=== PATIENT | female | born 1950 | race American Indian/Alaskan Native ===

== ENCOUNTER 2017-08-06 08:23 | Outpatient (CLI) | payer MEDICARE ==
--- NOTE | 2017-08-06 10:27 | Mammography Report ---
BILATERAL MAMMOGRAM: FINDINGS: The breast tissue is extremely dense (>75% glandular). This may lower the sensitivity of mammography. No mass, distortion, suspicious calcification, or skin change is seen. No significant change identified when compared to prior exam in July 2015. CAD was utilized. IMPRESSION: Negative mammogram. There is no mammographic evidence of malignancy. RECOMMENDATION: Follow-up per ACS guidelines. BI-RADS CATEGORY: 1 = Negative ACR BI-RADS MAMMOGRAPHIC CODES: 0 = Needs additional imaging evaluation; 1 = Negative; 2 = Benign; 3 = Probably benign; 4 = Suspicious; 5 = Malignant; 6 = Known biopsy-proven malignancy COMMENT: 1. Dense breast tissue, i.e., adenosis, fibrocystic changes, etc., may obscure an underlying neoplasm. 2. Approximately 10% of cancers are not detected with mammography. 3. A negative mammography report should not delay biopsy if a clinically suspicious mass is present. COMMENT: Patient follow-up letters are generated in [facility].
== END 2017-08-06 08:24 | disposition home or self-care (01) ==
LOC: MAMMO 08:23
PROVIDERS: ATTEND Internal Medicine
DX: Z12.31 Encounter for screening mammogram for malignant neoplasm of breast (principal)
CPT/HCPCS: 77067; G0202

== ENCOUNTER 2021-08-05 11:40 | Emergency (ER) | payer MEDICARE ==
[2021-08-05] MEDS ORDERED: ASPIRIN 81 MG TAB CHEW PO ONE (12:22)
--- NOTE | 2021-08-05 12:43 | Emergency Department Report ---
ED General Adult HPI - General Chief complaint: Chest Pain Stated complaint: chest pain Time Seen by Provider: 08/05/21 12:07 Source: patient, EMS Mode of arrival: Stretcher Limitations: No Limitations - History of Present Illness Initial comments: Patient presents to the emergency department the chief complaint left-sided chest pain that started at approximately 9:45 AM this morning while she was visiting her [facility] office. Patient denies a history of diabetes, hypertension, hyperlipidemia. Patient also denies smoking. Patient is now on any prescribed medications and only follows up with [facility] due to history of mitral valve prolapse. Patient stated the pain was located in the left side of her chest and was pressure-like in nature without radiation. She denies shortness of breath, abdominal pain, or headache. -: Sudden Location: chest Radiation: non-radiation Severity scale (0 -10): 5 Quality: other (Pressure) Consistency: constant Improves with: none Worsens with: none Associated Symptoms: denies other symptoms Treatments Prior to Arrival: none - Related Data Allergies Allergy/AdvReac Type Severity Reaction Status Date / Time codeine Allergy Rash Verified 08/05/21 12:27 ED Review of Systems ROS: Stated complaint: chest pain Other details as noted in HPI Comment: All other systems reviewed and negative Constitutional: denies: chills, fever Eyes: denies: eye pain, eye discharge, vision change ENT: denies: ear pain, throat pain Respiratory: denies: cough, shortness of breath, wheezing Cardiovascular: chest pain. denies: palpitations Endocrine: no symptoms reported Gastrointestinal: denies: abdominal pain, nausea, diarrhea Genitourinary: denies: urgency, dysuria, discharge Musculoskeletal: denies: back pain, joint swelling, arthralgia Skin: denies: rash, lesions Neurological: denies: headache, weakness, paresthesias Psychiatric: denies: anxiety, depression Hematological/Lymphatic: denies: easy bleeding, easy bruising ED Past Medical Hx - Past Medical History Previous Medical History?: Yes Additional medical history: mitral valve prolapse - Surgical History Past Surgical History?: No Additional Surgical History: denies - Social History Smoking Status: Never Smoker ED Physical Exam - General Limitations: No Limitations General appearance: alert, in no apparent distress - Head Head exam: Present: atraumatic, normocephalic - Eye Eye exam: Present: normal appearance, PERRL - ENT ENT exam: Present: mucous membranes moist - Neck Neck exam: Present: normal inspection - Respiratory Respiratory exam: Present: normal lung sounds bilaterally. Absent: respiratory distress - Cardiovascular Cardiovascular Exam: Present: regular rate, normal rhythm, systolic murmur. Absent: diastolic murmur, rubs, gallop - GI/Abdominal GI/Abdominal exam: Present: soft, normal bowel sounds. Absent: distended, tenderness - Extremities Exam Extremities exam: Present: normal inspection - Back Exam Back exam: Present: normal inspection - Neurological Exam Neurological exam: Present: alert, oriented X3, CN II-XII intact. Absent: motor sensory deficit - Psychiatric Psychiatric exam: Present: normal affect, normal mood - Skin Skin exam: Present: warm, dry, intact, normal color. Absent: rash ED Course Vital Signs 08/05/21 08/05/21 08/05/21 12:08 12:12 12:19 Temperature 98.1 F Pulse Rate 79 59 L Respiratory 16 14 16 Rate Blood Pressure 130/52 O2 Sat by Pulse 99 99 Oximetry 08/05/21 08/05/21 08/05/21 12:31 13:01 13:31 Temperature Pulse Rate 66 65 53 L Respiratory 16 16 12 Rate Blood Pressure 120/56 130/33 89/44 O2 Sat by Pulse 100 99 100 Oximetry 08/05/21 08/05/21 08/05/21 14:01 14:31 15:01 Temperature Pulse Rate 58 L 63 65 Respiratory 13 20 18 Rate Blood Pressure 136/53 136/43 133/51 O2 Sat by Pulse 100 100 98 Oximetry 08/05/21 08/05/21 08/05/21 15:31 16:01 16:31 Temperature Pulse Rate 60 64 57 L Respiratory 16 13 16 Rate Blood Pressure 121/55 133/49 130/52 O2 Sat by Pulse 99 100 100 Oximetry 08/05/21 08/05/21 17:01 18:31 Temperature Pulse Rate 64 Respiratory 13 Rate Blood Pressure 122/58 128/51 O2 Sat by Pulse 100 99 Oximetry ED Medical Decision Making - Lab Data Result diagrams: 08/05/21 13:00 08/05/21 13:00 - EKG Data -: EKG Interpreted by Pa EKG shows normal: sinus rhythm Rate: normal - Radiology Data Radiology results: report reviewed - Medical Decision Making Edilia results with patient 2 Daysi cardiology attending who states the patient can follow-up as an outpatient Critical care attestation.: If time is entered above; I have spent that time in minutes in the direct care of this critically ill patient, excluding procedure time. ED Disposition Clinical Impression: Chest pain, non-cardiac Disposition: HOME / SELF CARE / HOMELESS Is pt being admited?: No Does the pt Need Aspirin: No Condition: Stable Instructions: Nonspecific Chest Pain, Adult Additional Instructions: return if worse Referrals: PRIMARY CARE, [Primary Care Provider] - 3-5 Days LAVONNE CAO MD [Staff Physician] - 3-5 Days Time of Disposition: 19:08
--- NOTE | 2021-08-05 13:10 | XRay Report ---
CHEST 1 VIEW INDICATION: Chest Pain. COMPARISON: None FINDINGS: Support devices: None. Heart: Within normal limits. Lungs/Pleura: The lungs are hyperinflated. No acute air space or interstitial disease. No pleural eff usion or pneumothorax. Additional findings: None. IMPRESSION: No acute findings. Mild hyperinflation. Signer Name: Toño Amato Jr, MD Signed: 08/05/2021 1:05 PM Workstation Name: [id number]
[2021-08-05 13:32] LABS: Basophils # (Auto) 0.1 K/mm3 (0.0-0.1); Basophils % (Auto) 1.1 % (0.0-1.8); Eosinophils # (Auto) 0.1 K/mm3 (0.0-0.4); Eosinophils % (Auto) 1.6 % (0.0-4.3); Hematocrit 40.2 % (30.3-42.9); Hemoglobin 13.2 gm/dl (10.1-14.3); Lymphocytes # (Auto) 1.6 K/mm3 (1.2-5.4); Mean Corpuscular HGB Conc 33 % (30-34); Mean Corpuscular Volume 90 fl (79-97); Monocytes # (Auto) 0.4 K/mm3 (0.0-0.8); Monocytes % (Auto) 7.1 % (0.0-7.3); Platelet Count 226 K/mm3 (140-440); Red Blood Count 4.47 M/mm3 (3.65-5.03); Red Cell Distribution Width 14.6 % (13.2-15.2)
[2021-08-05 13:41] LABS: INR 0.93 (0.87-1.13)
[2021-08-05 13:42] LABS: Partial Thromboplastin Time 28.1 Sec. (24.2-36.6)
[2021-08-05 13:52] LABS: Alanine Aminotransferase 18 units/L (7-56); Albumin 4.4 g/dL (3.9-5); BUN/Creatinine Ratio 23; Blood Urea Nitrogen 21 mg/dL (7-17); Hemolysis Index 12
[2021-08-05 14:48] LABS: Bilirubin,Urine NEG (Negative); Blood,Urine SM (Negative); Color,Urine Straw (Yellow); Mucus,Urine FEW /HPF; Protein,Urine <15 mg/dL mg/dL (Negative); Urobilinogen,Urine < 2.0 mg/dL (<2.0)
[2021-08-05 14:49] LABS: WBC,Urine < 1.0 /HPF (0.0-6.0)
[2021-08-05 18:39] VITALS: BP 128/51
--- NOTE | 2021-08-06 17:36 | Electrocardiograph Report ---
[facility] Test Date: 2021-08-05 Test Time: 12:17:34 Pat Name: Honey MICHELE Department: Room: Gender: F [employer] Supervisor: DOMINIK : 1950 Requested By: SCOTT LYNNE Order Number: [id number] Reading MD: Minal Young Measurements Intervals [place] Rate: 66 P: 77 FL: 147 QRS: 53 QRSD: 85 T: 48 QT: 376 QTc: 393 Interpretive Statements Sinus rhythm Probable left atrial enlargement No previous ECG available for comparison Electronically Signed On 08-06-2021 17:35:50 EDT by Minal Young
== END 2021-08-05 19:53 | disposition home or self-care (01) ==
LOC: ED 11:40
DX: R07.89 Other chest pain (principal); Z88.5 Allergy status to narcotic agent; Z79.899 Other long term (current) drug therapy
CPT/HCPCS: 36415; 71045; 80053; 81001; 83690; 84484; 85025; 85379; 85610; 85730; 93005; 99284